=== PATIENT | female | born 1970 | race Caucasian/White ===

== ENCOUNTER 2019-06-09 21:25 | Emergency (ER) | payer MEDICAID ==
[~2019-06-09] VITALS: Ht 170.2 cm; Wt 131.1 kg
[2019-06-09 21:41] VITALS: BP 129/60; Ht 170.2 cm; Wt 131.1 kg
== END 2019-06-09 22:41 | disposition home or self-care (01) ==
LOC: ED 21:25
DX: R05 Cough (principal); R09.89 Other specified symptoms and signs involving the circulatory and respiratory systems; R68.83 Chills (without fever); Z88.1 Allergy status to other antibiotic agents; J45.909 Unspecified asthma, uncomplicated; F17.210 Nicotine dependence, cigarettes, uncomplicated